=== PATIENT | female | born 1955 | race Caucasian/White ===

== ENCOUNTER → 2017-06-01 | Outpatient (CLI) | payer BC ==
--- NOTE | 2017-06-01 09:56 | DIAGNOSTIC IMAGING REPORT ---
RIGHT SHOULDER MIN 2 VIEWS ROUTINE CLINICAL HISTORY: Right shoulder pain. COMPARISON: None FINDINGS: Alignment of the right shoulder is anatomic with the exception of slight elevation of the distal right clavicle. No acute fracture or suspicious lesion is evident. A few calcific densities along the superolateral aspect of the right humeral head measure up to 1.6 cm. IMPRESSION: 1. No acute fracture. 2. Slight elevation of the distal right clavicle. This suggests a mild AC joint separation which may be chronic. 3. A few calcific densities along the superolateral aspect of the right humeral head which suggests calcific tendinitis of the right rotator cuff. Electronically signed by: Randy Briscoe M.D. 06/01/2017 9:55 AM Dictated Date/Time: 06/01/2017 9:53 AM
== END | disposition home or self-care (01) ==
LOC: C.RAD1850 09:34
PROVIDERS: ATTEND Family Medicine
DX: M25.511 Pain in right shoulder (principal); M25.811 Other specified joint disorders, right shoulder

== ENCOUNTER → 2017-12-04 | Outpatient (CLI) | payer OTHER ==
--- NOTE | 2017-12-04 15:07 | MAMMOGRAPHY REPORT ---
BILATERAL DIGITAL SCREENING MAMMOGRAM TOMOSYNTHESIS WITH CAD: 12/04/2017 CLINICAL HISTORY: Routine screening. Patient has no complaints. TECHNIQUE: Breast tomosynthesis in addition to standard 2D mammography was performed. Current study was also evaluated with a Computer Aided Detection (CAD) system. COMPARISON: Comparison is made to exams dated: 02/20/2016 mammogram, 01/29/2015 mammogram, 10/27/2013 ma mmogram, 10/26/2012 mammogram, 08/08/2011 mammogram, and 03/07/2010 mammogram - [facility] nter. BREAST COMPOSITION: The tissue of both breasts is heterogeneously dense, which may obscure small mas ses. FINDINGS: No suspicious masses, calcifications, or areas of architectural distortion are noted in ei ther breast. There has been no significant interval change compared to prior exams. IMPRESSION: ACR BI-RADS CATEGORY 1: NEGATIVE There is no mammographic evidence of malignancy. A 1 year screening mammogram is recommended. The pa tient will receive written notification of the results. Approximately 10% of breast cancers are not detected with mammography. A negative mammographic report should not delay biopsy if a clinically suggestive mass is present. Mary Hinojosa M.D. ah/:12/04/2017 13:49:48 Cfo Controller: Norma BAHENA(Dara)(M), [facility] letter sent: Normal 1/2 BI-RADS Code: ACR BI-RADS Category 1: Negative
== END | disposition home or self-care (01) ==
LOC: C.MAMM 09:47
PROVIDERS: ATTEND Family Medicine
DX: Z12.31 Encounter for screening mammogram for malignant neoplasm of breast (principal)

== ENCOUNTER → 2018-01-15 | Outpatient (CLI) | payer OTHER ==
--- NOTE | 2018-01-15 09:45 | DIAGNOSTIC IMAGING REPORT ---
MRI OF THE LEFT KNEE CLINICAL HISTORY: Left knee pain. COMPARISON STUDY: Radiographs of left knee dated 01/08/2018. TECHNIQUE: MRI of the left knee was performed utilizing proton density, T1, and T2-weighted sequences in the axial, sagittal, coronal planes. IV contrast was not administered for this examination. FINDINGS: Menisci: There is increased signal identified within the posterior horn of the medial meniscus, best seen on the sagittal proton density image. This does not clearly extend to the articular surface and could represent mucoid degeneration versus intrasubstance tear. The lateral meniscus is Intact. Ligaments: The anterior and posterior cruciate ligaments are intact. The medial and lateral collateral ligaments are within normal limits. Extensor mechanism: There is tendinopathy and partial-thickness tearing identified in the patellar tendon. Overlying soft tissue edema is noted. The quadriceps tendon appears maintained. Hoffa's fat pad is normal in appearance. 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 There is a large full-thickness cartilage defect identified along the medial patellar facet and patellar apex which measures up to 10 mm. Additional foci of full-thickness to nearly full-thickness cartilage loss is seen along the lateral patellar facet. There are associated foci of subchondral marrow edema within the patella. There is also significant thinning of the articular cartilage of the medial femoral trochlea. There is moderate degenerative thinning of the articular cartilage along the weightbearing surface in the medial compartment. A focus of nearly full-thickness fissuring is present along the anterior aspect of the medial femoral condyle with associated reactive marrow edema. Only mild cartilaginous thinning is present in the lateral compartment. There is no MRI evidence of fracture. There are small marginal osteophytes. A small foci of cystic change is present within the posterior tibial plateau there are the posterior cruciate ligament insertion. Joint effusion: There is trace joint fluid. Soft tissues: The musculature surrounding the knee joint is normal in bulk and signal intensity. IMPRESSION: 1. There is tendinopathy with partial-thickness tearing of the patellar tendon seen near the insertion. Overlying soft tissue edema is noted. 2. 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 3. Milder arthritic change is present in the medial compartment. 4. The cruciate ligaments and the collateral alignment are preserved. 5. There is increased signal within the posterior horn of the medial meniscus that does not clearly reach the articular surface. This could represent mucoid degeneration or intrasubstance tear. The lateral meniscus is maintained. 6. Additional findings as above. Electronically signed by: Gokul Parry M.D. 01/15/2018 9:43 AM Dictated Date/Time: 01/15/2018 9:35 AM
== END | disposition home or self-care (01) ==
LOC: C.MRIBC 08:53
PROVIDERS: ATTEND Orthopaedic Surgery
DX: M25.562 Pain in left knee (principal)